=== PATIENT | female | born 1960 | race Caucasian/White ===

== ENCOUNTER → 2019-06-19 | Outpatient (CLI) | payer OTHER ==
[~2019-06-19] MED LIST: AZITHROMYCIN 2250 MG PO; FLEXERIL PO; HYDROCODONE-AP1 EAC6 PO; IBUPROFEN 800800 M1 PO; MOBIC7.5 MG PO; NOHOMEMEDICATIONS; XOPENEX HFA15 GM IH
== END ==
LOC: M.CT 15:00
DX: R51 Headache (principal); F41.9 Anxiety disorder, unspecified; Z90.49 Acquired absence of other specified parts of digestive tract

== ENCOUNTER 2020-08-17 07:51 | Emergency (ER) | payer OTHER ==
[~2020-08-17] VITALS: Ht 170.2 cm; Wt 65.8 kg
[2020-08-17 08:29] LABS: ABSOLUTE MONOCYTES 0.4 thou/uL (0.0-1.2); ABSOLUTE NEUTROPHILS 2.7 thou/uL (1.6-8.1); EOSINOPHILS 0.6 %; HEMATOCRIT 38.6 % (37.0-47.0); HEMOGLOBIN 12.8 gm/dL (12.0-15.0); LYMPHOCYTES 23.1 %; MCH 28.1 pg (26.0-34.0); MCHC 33.1 g/dL (28.0-37.0); MCV 84.8 fL (80.0-100.0); MPV 8.4 fl. (7.2-11.1); NUCLEATED RBCS 0 /100WBC; PLATELET COUNT* 241 thou/uL (150-400); POLYS 66.3 %; RBC 4.54 mil/uL (4.20-5.00); RDW-CV 13.7 % (10.5-14.5); WBC 4.1 thou/uL (4.0-11.0)
[2020-08-17 08:37] LABS: CALCIUM 9.1 mg/dL (8.5-10.1); CREATININE 0.7 mg/dL (0.6-1.3); POTASSIUM 3.1 mmol/L (3.5-5.1)
[2020-08-17 08:40] LABS: APTT 24.5 Seconds (25.0-31.3); PROTIME 10.4 Seconds (9.20-11.50)
[2020-08-17] MEDS ORDERED: XANAX 0.5 MG0.5 MG PO (08:41)
[2020-08-17] MEDS ORDERED: ZOFRAN ODT4 MG SUBLING (08:41)
[2020-08-17] MEDS ORDERED: DEXAMETHASONE 44 M1 PO (08:41)
[2020-08-17 08:48] LABS: ALBUMIN 4.5 g/dL (3.4-5.0); TOTAL BILIRUBIN 0.5 mg/dL (<0.1-1.0); TOTAL PROTEIN 7.7 g/dL (6.4-8.2)
[2020-08-17 08:51] LABS: URINE BILIRUBIN NEGATIVE (Negative); URINE BLOOD NEGATIVE (Negative); URINE CLARITY CLEAR; URINE COLOR YELLOW; URINE GLUCOSE-RANDOM NEGATIVE (Negative); URINE KETONES 1+ (Negative); URINE LEUKOCYTES-REFLEX NEGATIVE (Negative); URINE NITRITE-REFLEX NEGATIVE (Negative); URINE PROTEIN NEGATIVE (Negative); URINE SPECIFIC GRAVITY <= 1.005 (1.005-1.030); URINE UROBILINOGEN 0.2 E.U./dl (0.2-1.0)
[2020-08-17 09:38] VITALS: BP 138/70
--- NOTE | 2020-08-18 09:19 | EKG ---
[place] [address] ELECTROCARDIOGRAM REPORT Name: CATHY ALVARADO Room: [facility]#: [id number] Admission: 08/17/20 Attend Phys: Discharge: 08/17/20 Date of : 62 Date of Service: 08/17/2024 Report #: [id number] THIS REPORT FOR: //name// [facility] ED Test Date: 2020-08-17 Test Time: 08:24:49 Pat Name: CATHY ALVARADO Department: Room: Gender: F Automation Lead: : 1960 Requested By: Ish Moore Order Number: [id number] MD: Woodrow Hair Measurements Intervals Rebecca Rate: 89 P: 77 NV: 151 QRS: 33 QRSD: 86 T: 71 QT: 361 QTc: 440 Interpretive Statements Sinus rhythm poor r wave progression Baseline wander in lead(s) V3 Compared to ECG 04/15/2008 04:34:56 Sinus arrhythmia no longer present Electronically Signed On 08-18-2020 9:19:05 CHEMICAL ENGINEER by Woodrow Hair [email or web address] <ELECTRONICALLY SIGNED> By: Woodrow Hair MD, [facility] 08/18/2019 3 3 Woodrow Hair MD, [facility] /EPI
== END 2020-08-17 09:40 | disposition home or self-care (01) ==
LOC: M.ERS 07:51
PROVIDERS: Family Medicine
DX: U07.1 COVID-19 (principal); F41.9 Anxiety disorder, unspecified; Z90.49 Acquired absence of other specified parts of digestive tract; Z88.5 Allergy status to narcotic agent; Z88.8 Allergy status to other drugs, medicaments and biological substances